=== PATIENT | female | born 1955 ===

== ENCOUNTER 2018-06-04 07:54 | Emergency (ER) | payer OTHER ==
[~2018-06-04] VITALS: Ht 170.2 cm; Wt 77.1 kg
[2018-06-04] MEDS ORDERED: PROVENTIL HFA6.7 GM (08:06)
[2018-06-04] MEDS ORDERED: PULMICORT FLE180 MCG IH (08:06)
[2018-06-04] MEDS ORDERED: TESSALON PERLE100 MG PO (12:07)
[2018-06-04] MEDS ORDERED: TUSSIONEX PENN115 ML PO (12:07)
== END 2018-06-04 12:32 | disposition home or self-care (01) ==
LOC: ER 07:54
DX: J45.998 Other asthma (principal)